=== PATIENT | female | born 1945 | race Caucasian/White ===

== ENCOUNTER → 2018-06-26 14:33 | Outpatient (CLI) | payer OTHER, SELFPAY ==
--- NOTE | 2018-06-26 | DI.RAD.S_ITS ---
PROCEDURE: XR SINUS MIN 3V INDICATIONS: SINUS PAIN TECHNIQUE: 3 views of the sinuses were acquired. COMPARISON: None. FINDINGS: Sinuses: The visualized sinuses demonstrate possible air-fluid levels in the maxillary sinuses bilaterally. The visualized mastoids also appear clear. Bones: No suspicious bony lesions. Nasal septum is midline. IMPRESSION: Suspect acute maxillary sinusitis. Dictated by: Chiara Benson M.D. on 06/26/2018 at 17:22 Approved by: Chiara Benson M.D. on 06/26/2018 at 17:24
== END ==
PROVIDERS: Family Provider Family Medicine; PCP Family Medicine; Visit Provider Family Medicine
DX: J34.89 Other specified disorders of nose and nasal sinuses (principal)
CPT/HCPCS: 70220

== ENCOUNTER → 2021-11-18 09:33 | Outpatient (CLI) | payer OTHER, SELFPAY ==
--- NOTE | 2021-11-18 09:34 | DI.MG.S_ITS ---
BILATERAL DIGITAL SCREENING MAMMOGRAM 3D/2D WITH CAD: 11/18/2021 CLINICAL: Routine screening. Family history of breast cancer. Comparison is made to exams dated: 05/27/2019 mammogram, 12/09/2017 mammogram, and 02/14/2016 mammogram - [facility]. The tissue of both breasts is predominantly fatty. Current study was also evaluated with a Computer Aided Detection (CAD) system. No significant masses, calcifications, or other findings are seen in either breast. There has been no significant interval change. IMPRESSION: NEGATIVE There is no mammographic evidence of malignancy. A 1 year screening mammogram is recommended. This exam was interpreted at Station ID: [id number]. NOTE: For mammograms, a report in lay terms will be sent to the patient. Approximately 15% of breast malignancies will not be visualized mammographically. In the management of a palpable breast mass, a negative mammogram must not discourage biopsy of a clinically suspicious lesion. Electronically Signed By: Chase Garcia M.D., jr/nancy:11/20/2021 08:54:56 letter sent: Normal Exam ACR BI-RADS Category 1: Negative 3341F
== END ==
PROVIDERS: Family Provider Family Medicine; PCP Family Medicine; Referring Provider Family Medicine; Visit Provider Family Medicine
DX: Z12.31 Encounter for screening mammogram for malignant neoplasm of breast (principal); Z80.3 Family history of malignant neoplasm of breast
CPT/HCPCS: 77063; 77067

== ENCOUNTER → 2022-12-05 14:09 | Outpatient (CLI) | payer OTHER, SELFPAY ==
--- NOTE | 2022-12-05 | DI.MG.S_ITS ---
BILATERAL DIGITAL SCREENING MAMMOGRAM 3D/2D WITH CAD: 12/05/2022 CLINICAL: Routine screening. Family history of breast cancer. Comparison is made to exams dated: 11/18/2021 mammogram - [facility], 05/27/2019 mammogram, and 12/09/2017 mammogram - [facility]. Both breasts are almost entirely fatty (category a/<25% glandular tissue). Current study was also evaluated with a Computer Aided Detection (CAD) system. No significant masses, calcifications, or other findings are seen in either breast. There has been no significant interval change. IMPRESSION: NEGATIVE There is no mammographic evidence of malignancy. A 1 year screening mammogram is recommended. Based on the Tyrer Cuzick model (a risk assessment model) the patient's lifetime risk is 6.1% and her 10 year risk is 6.1%. According to the ACR, ACS, and NCCN guidelines, an annual breast MRI exam along with mammogram is recommended if the patient's lifetime risk is 20% or greater. This exam was interpreted at Station ID: [id number]. NOTE: For mammograms, a report in lay terms will be sent to the patient. Approximately 15% of breast malignancies will not be visualized mammographically. In the management of a palpable breast mass, a negative mammogram must not discourage biopsy of a clinically suspicious lesion. Electronically Signed By: Bob munoz/nancy:12/05/2022 16:54:53 letter sent: Normal Exam ACR BI-RADS Category 1: Negative 3341F
== END ==
PROVIDERS: Family Provider Family Medicine; PCP Family Medicine; Referring Provider Family Medicine; Visit Provider Family Medicine
DX: Z12.31 Encounter for screening mammogram for malignant neoplasm of breast (principal); Z80.3 Family history of malignant neoplasm of breast
CPT/HCPCS: 77063; 77067

== ENCOUNTER → 2023-06-20 12:18 | Outpatient (CLI) | payer OTHER, SELFPAY ==
--- NOTE | 2023-06-20 | DI.US.S_ITS ---
PROCEDURE: US PELVIC COMPLETE INDICATIONS: ENDOMETRIAL HYPERPLASIA TECHNIQUE: Real-time scanning was performed of the pelvic organs, with image documentation. Additional endovaginal scanning was necessary due to incomplete visualization of the adnexal and endometrial structures by transabdominal scanning. COMPARISON: None. FINDINGS: Uterus: Uterus is anteverted and normal in size at 5.2 x 2.9 x 3.4 cm. The myometrium is homogeneous. The endometrium measures 5 mm combined thickness. Intrauterine intramural fibroid in the mid uterine segment measuring 1.5 x 1.9 x 1.5 centimeter. Ovaries: Not visualized due to overlying bowel gas. Other: No pathologic free abdominal or pelvic fluid. IMPRESSION: Endometrial stripe measures 5 millimeters. We strive to produce accurate, complete, and clear reports of imaging services. To assist us in improving patient care, this report was composed using standard report templates and voice recognition software. Therefore, it may contain abnormal punctuation, insertions and/or omissions. Occasional wrong-word or sound-alike substitutions may occur. Though we review the report and make efforts to correct it, we do recommend that the report be read carefully in proper context to recognize any text inaccuracies. Dictated by: Conor Liu M.D. on 06/20/2023 at 16:41 Approved by: Conor Liu M.D. on 06/20/2023 at 16:42
== END ==
PROVIDERS: Family Provider Family Medicine; PCP Family Medicine; Referring Provider Family Medicine; Visit Provider Family Medicine
DX: N85.01 Benign endometrial hyperplasia (principal); D25.1 Intramural leiomyoma of uterus
CPT/HCPCS: 76830; 76856; 93975

== ENCOUNTER → 2023-09-25 12:06 | Outpatient (CLI) | payer OTHER, SELFPAY ==
--- NOTE | 2023-09-25 | DI.MRI.S_ITS ---
PROCEDURE: MR CERVICAL SPINE WO CON INDICATIONS: Spinal stenosis, cervical region TECHNIQUE: Noncontrast sagittal T1 spin echo and T2 fast spin echo, sagittal STIR, foraminal oblique sagittal T2 fast spin echo, and axial gradient echo or T2 fast spin echo through the cervical spine. COMPARISON: None. FINDINGS: Image quality: This examination is limited by involuntary motion artifact. Alignment and Curvature: There is minimal retrolisthesis seen at the C3-C4 level. Bone Marrow: Marrow demonstrates normal overall signal. Spinal Cord: Visualized spinal cord has normal size and signal. No cerebellar tonsillar herniation. Paraspinous Soft Tissues: No paravertebral masses. Prevertebral soft tissues are normal in thickness. C2-C3: The disc height is well-preserved. Loss of disc signal is seen at this level. A mild degree of generalized disc osteophyte complex is seen. Mild facet joint hypertrophy is seen. Mild bilateral neural foraminal narrowing is seen. No central canal narrowing is seen. C3-C4: Mild loss of disc height is seen. Loss of disc signal is seen. A mild degree of generalized disc osteophyte complex is seen. Moderate facet joint hypertrophy is seen. Moderate to severe bilateral neural foraminal narrowing can be seen. Mild to moderate central canal narrowing is seen. C4-C5: Moderate loss of disc height is seen. Loss of disc signal is seen. A mild degree of generalized disc osteophyte complex is seen. At least moderate facet hypertrophy is seen. There is moderate to severe left-sided and at least moderate right-sided neural foraminal narrowing. Mild central canal narrowing is seen. C5-C6: Moderate loss of disc height is seen. Loss of disc signal is seen. Moderate generalized disc osteophyte complex is seen. Moderate facet joint hypertrophy is seen. There is moderate to severe bilateral neural foraminal narrowing seen, with an associated a degree of compression seen upon the exiting nerve roots. Mild to moderate central canal narrowing is seen, with a mild degree of mass effect upon the ventral spinal cord. C6-C7: Moderate loss of disc height is seen. Loss of disc signal is seen. Moderate disc osteophyte complex is seen, which is eccentric to the left, with a central/left disc osteophyte protrusion. Mild to moderate facet hypertrophy can be seen. There is moderate right-sided and at least moderate left-sided neural foraminal narrowing. Moderate central canal narrowing is seen. There is associated mass effect upon the ventral spinal cord. C7-T1: Moderate loss of disc height is seen. Loss of disc signal is seen. A mild degree of generalized disc osteophyte complex is seen. Moderate facet joint hypertrophy is seen. There is mild right-sided and no left-sided neural foraminal narrowing. Minimal central canal narrowing is seen. IMPRESSION: Multiple levels of cervical spine degenerative change can be seen, which are overall worst inferiorly. Dictated by: Richie Artis M.D. on 09/25/2023 at 13:02 Approved by: Richie Artis M.D. on 09/25/2023 at 13:06
== END ==
PROVIDERS: Family Provider Family Medicine; PCP Family Medicine; Referring Provider Physical Medicine & Rehabilitation Pain Medicine; Visit Provider Physical Medicine & Rehabilitation Pain Medicine
DX: M48.02 Spinal stenosis, cervical region (principal); M47.812 Spondylosis without myelopathy or radiculopathy, cervical region
CPT/HCPCS: 72141

== ENCOUNTER 2023-12-07 00:02 | Emergency (ER) | payer OTHER, SELFPAY ==
[2023-12-07] VITALS (7 sets, daily range): BP systolic 134–185; BP diastolic 61–81; PULSE 68–78; RESP 16–33; TEMP 36.6–36.7; O2SAT 97–99; BMI 79.4
--- NOTE | 2023-12-07 00:06 | ED.ARRPALP ---
HPI - Arrhythmia/Palpitations General Chief Complaint: Arrhythmia/Palpitations Stated Complaint: irregular heart beat Time Seen by Provider: 12/07/23 00:03 Source: patient, RN notes reviewed and old records reviewed Mode of arrival: Ambulatory Limitations: no limitations History of Present Illness HPI narrative: 77-year-old female with history of irregular heartbeat 15-20 years ago metoprolol daily, hypertension, hypothyroidism and insomnia with prior lap band remotely. Patient states she felt like her heart rate was irregular today sort of a flutter in her chest that felt weird. Denies any chest pain or pressure, no shortness of breath. [place] like sometimes she had some trigeminy. She states heart rates usually in the 60s and has a little bit higher today. She denies any syncope, no lightheadedness. No fevers cough cold or congestion. No nausea or vomiting. No diarrhea constipation, no urinary symptoms no swelling of extremities. Patient states she saw Dr. Murphy for Cardiology 15 or 20 years ago for an irregular heartbeat was started on metoprolol at that time and has not had any issues since. States home medications include Ambien in the evenings, metoprolol 25 mg once daily, amlodipine 5 mg as well as Synthroid 100 mcg. Patient's prior surgeries has had cholecystectomy, lap band approximately 20 years ago and tonsil and adenoids. No reported drug allergies. No tobacco, alcohol or recreational drugs, no regular caffeine. Patient's primary care is Dr. Aponte. Patient did see Dr. Sanders (last visit was 15-20 years ago). Related Data Home Medications Medication Instructions Recorded Confirmed [LOTREL] 520 mg PO Q DAY ##0 12/17/10 [TRILIPICS] 135 mg PO Q DAY ##0 12/17/10 [ZERTEC] 10 mg PO BID ##0 12/17/10 Previous Rx's Medication Instructions Recorded azithromycin 250 mg tablet 250 mg PO Q DAY #6 tabs 11/10/17 (Zithromax) benzonatate 100 mg capsule 100 mg PO TID #30 caps 11/10/17 (Tessalon Perles) ipratropium 20 mcg-albuterol 100 1 puff INH QID #1 inh 11/10/17 mcg/actuation mist for inhalation (Combivent Respimat) Allergies Allergy/AdvReac Type Severity Reaction Status Date / Time gentamicin [GENTAMICIN] Allergy Unknown Unverified 01/22/18 11:58 Review of Systems Review of Systems ROS Unobtainable: All systems reviewed & are unremarkable except as noted in HPI and below Patient History Social History Smoking Status: Former smoker Exam Narrative Exam Narrative: GENERAL: Alert and oriented x three, mild distress HEENT: Head normocephalic, atraumatic, EOMI, pupils reactive, face symmetric, moist mucous membranes NECK: Supple, full range of motion CARDIOVASCULAR: Regular rate and rhythm without murmurs, rubs or gallops. No JVD. No edema bilateral lower extremities. RESPIRATORY: Breath sounds equal bilaterally, no wheezes rales or rhonchi. No tachypnea or accessory muscle use. ABDOMEN: Soft, nontender. Normoactive bowel sounds all 4 quadrants. No guarding or rebound, rigidity, no mass : No CVA tenderness EXTREMITIES: Normal range of motion, no clubbing or edema. Neurovascularly intact NEUROLOGICAL: Cranial nerves II through XII grossly intact. Moving all extremities SKIN: Warm, dry, no petechiae, no rashes or lesions. Initial Vital Signs Initial Vital Signs: Vital Signs Temperature 98.1 F 12/07/23 00:11 Pulse Rate 77 12/07/23 00:11 Respiratory Rate 18 12/07/23 00:11 Blood Pressure 185/81 H 12/07/23 00:11 Pulse Oximetry 97 12/07/23 00:11 Oxygen Delivery Method Room Air 12/07/23 00:11 Course Orders Ordered: ED Orders 12/07/23 00:18 EKG-12 Lead Stat 12/07/23 00:24 XR chest 1V Stat 12/07/23 00:30 Complete Blood Count AUTO DIFF Stat Comprehensive Metabolic Panel Stat Lipase Stat NT-proBNP (BNP-Adult 18+) Stat Troponin & CK Cardiac Panel Stat 12/07/23 01:14 MAG [Magnesium] Stat Discontinued Medications Sodium Chloride (Normal Saline 0.9%) 1,000 mls @ 1,000 mls/hr IV BOLUS ONE Stop: 12/07/23 01:23 Last Admin: 12/07/23 00:33 Dose: 1,000 mls/hr Documented By: LISA Vital Signs Vital signs: Vital Signs - 8 hr 12/07/23 00:11 12/07/23 00:35 12/07/23 00:37 Temperature 98.1 F Pulse Rate 77 77 78 Respiratory Rate 18 33 H 16 Blood Pressure 185/81 H Pulse Oximetry 97 99 98 Oxygen Delivery Method Room Air Room Air Room Air 12/07/23 00:37 12/07/23 01:00 12/07/23 01:00 Temperature Pulse Rate 71 Respiratory Rate 17 Blood Pressure 174/81 H 156/70 H Pulse Oximetry 98 Oxygen Delivery Method 12/07/23 01:30 12/07/23 01:30 12/07/23 02:00 Temperature Pulse Rate 71 68 Respiratory Rate 18 18 Blood Pressure 144/66 H Pulse Oximetry 98 98 Oxygen Delivery Method 12/07/23 02:00 12/07/23 02:11 Temperature 97.9 F Pulse Rate 72 Respiratory Rate 16 Blood Pressure 134/61 136/74 Pulse Oximetry 98 Oxygen Delivery Method Room Air MDM - Arrhythmia/Palpitations Lab Data 12/07/23 00:30 12/07/23 00:30 Labs: Lab Results 12/07/23 12/07/23 Range/Units 00:30 01:14 WBC 8.5 (4.5-11.0) X10^3/uL RBC 5.17 (4.0-5.2) X10^6/uL Hgb 15.4 (12.0-16.0) g/dL Hct 45.1 (36-46) % MCV 87.3 (80-100) fL MCH 29.8 (26-34) PG MCHC 34.1 (30-36) % RDW 14.1 (11.6-14.8) % Plt Count 211 (150-400) X10^3/uL Neut % (Auto) 60.2 (50-75) % Lymph % (Auto) 27.2 (25-40) % [place] % (Auto) 8.9 (3-14) % Eos % (Auto) 2.8 (2-4) % Baso % (Auto) 0.9 (0-2) % Neut # (Auto) 5100 (6350-0365) /uL Lymph # (Auto) 2300 (7807-4822) /uL [place] # (Auto) 800 (0-900) /uL Eos # (Auto) 200 (0-450) /uL Baso # (Auto) 100 (0-100) /uL Sodium 141 (137-145) mmol/L Potassium 3.9 (3.4-5.1) mmol/L Chloride 108 H (98-107) mmol/L Carbon Dioxide 22 (22-32) mmol/L BUN 17 (7-17) mg/dL Creatinine 0.66 (0.52-1.04) mg/dL Estimated GFR > 60 (>60) mL/min BUN/Creatinine Ratio 25.8 H (6-22) Glucose 107 (80-110) mg/dL Calcium 9.9 (8.4-10.2) mg/dL Magnesium 1.8 (1.6-2.3) mg/dL Total Bilirubin 0.7 (0.2-1.3) mg/dL AST 29 (14-36) IU/L ALT 22 (<35) IU/L Alkaline Phosphatase 110 (38-126) U/L Total Creatine Kinase 39 (30-135) U/L Troponin I < 0.012 (0.01-0.034) ng/mL NT-Pro-B Natriuret Pep 289 (<450) pg/mL Total Protein 7.6 (6.3-8.2) g/dL Albumin 4.5 (3.5-5.0) g/dL Globulin 3.1 (1.7-4.1) g/dL Albumin/Globulin Ratio 1.5 (1.0-2.8) Lipase 239 (23-300) U/L Urine Dip Bedside Urine Glucose Negative Bedside Urine Bilirubin - Negative Bedside Urine Ketone - Negative Urine Specific [place] 1.005 Bedside Urine Occult Blood + Bedside Urine pH 6.0 Bedside Urine Protein - Negative Bedside Urine Urobilinogen - Negative Bedside Urine Nitrite - Negative Bedside Urine Leukocytes - Negative Esterase Imaging Data Chest x-ray: Radiologist's Impresson: [address] [id number] XRay Report Signed Patient: Alondra Kim MR#: [id number] : 1945 Acct:[id number] Age/Sex: 77 / F Date of Service: 12/07/23 Loc: ED Accession Number: [id number] Procedure: XR chest 1V Ordering Provider: Hailey Knowles D.O. PROCEDURE: XR CHEST 1V INDICATIONS: flutter in chest TECHNIQUE: One view of the chest was acquired. COMPARISON: [facility], , CHEST 2 VIEW, 11/21/2017, 13:34. FINDINGS: Surgical changes and devices: None. Lungs and pleura: Lungs are clear. No pleural effusions or pneumothorax. Mediastinum: Mediastinal contours appear normal. Heart size is normal. Bones and chest wall: No suspicious bony lesions. Overlying soft tissues appear unremarkable. IMPRESSION: Stable radiographic evaluation of the chest without acute cardiopulmonary abnormalities or focal airspace disease. Dictated by: Bob Floyd M.D. on 12/07/2023 at 1:00 Approved by: Bob Floyd M.D. on 12/07/2023 at 1:00 ECG Data Attestation: I personally reviewed and interpreted this ECG as follows: Prior ECG tracings: not available for review Interpretation: Sinus rhythm rate 83 TN 152 QRS of 98 QTC of 477. Nonspecific ST change. Depression in lateral leads V4 5 and 6. No elevation appreciated. No priors available for comparison. MDM Narrative Medical decision making narrative: 77-year-old female comes in with complaint of flutter sensation in her chest/irregular heart rate since she woke up yesterday morning. Patient does have occasional PVCs on monitor but infrequently. Patient notes she would irregular heartbeat 15-20 years ago was placed on metoprolol at that time and has not required any other interventions. EKG shows some ST depression in lateral leads but patient does not have any complaints of chest pain or pressure shortness of breath. No elevations noted. Chest x-ray shows no acute change Labs negative CBC, CMP shows a chloride of 108, otherwise normal electrolytes, renal function, troponin is negative BNP is 289. LFTs are negative. Magnesium is 1.8 Patient was given 1 L of fluids. She feels improved and doesn't appreciate the flutter feeling in her chest at this time. Discussed with patient she would falls comfortable to return home. Discussed can follow up with primary care for Holter/ZIO patch if symptoms are minimal if worsening or feels concern can return for re-evaluation. Patient has ambulated to the bathroom and back without issue. Discharge Plan Departure Patient Disposition: Home Clinical Impression: Palpitations Instructions: DI for Palpitations Activity Restrictions/Additional Instructions: Your telemetry does show occasional extra beats but no arrhythmias today. Please follow-up with your physician for recheck if your symptoms are persisting. Please continue your home medications as prescribed. Please return if you have fevers, new chest pain or shortness of breath, persistently irregular or elevated heart rates, lightheadedness or passing out, persistent vomiting, new swelling in your extremities or other new or concerning changes. Prescriptions: No Action [LOTREL] 520 mg PO Q DAY Qty: 0 [TRILIPICS] 135 mg PO Q DAY Qty: 0 [ZERTEC] 10 mg PO BID Qty: 0 azithromycin [Zithromax] 250 MG tablet 250 mg PO Q DAY Qty: 6 0RF benzonatate [Tessalon Perles] 100 MG capsule 100 mg PO TID Qty: 30 0RF ipratropium-albuterol [Combivent Respimat] 4 GM mist 1 puff INH QID Qty: 1 0RF Referrals: Josue Aponte MD [Primary Care Provider] - Stand Alone Forms: Patient Portal/API
--- NOTE | 2023-12-07 00:24 | DI.RAD.S_ITS ---
PROCEDURE: XR CHEST 1V INDICATIONS: flutter in chest TECHNIQUE: One view of the chest was acquired. COMPARISON: [facility], , CHEST 2 VIEW, 11/21/2017, 13:34. FINDINGS: Surgical changes and devices: None. Lungs and pleura: Lungs are clear. No pleural effusions or pneumothorax. Mediastinum: Mediastinal contours appear normal. Heart size is normal. Bones and chest wall: No suspicious bony lesions. Overlying soft tissues appear unremarkable. IMPRESSION: Stable radiographic evaluation of the chest without acute cardiopulmonary abnormalities or focal airspace disease. Dictated by: Bob Floyd M.D. on 12/07/2023 at 1:00 Approved by: Bob Floyd M.D. on 12/07/2023 at 1:00
[2023-12-07] MEDS: SODIUM CHLORIDE 0.9% 1,000 ML 1000 ML IV (00:33)
[2023-12-07 00:52] LABS: Add Manual Diff / Slide Review NO; Basophils Absolute Auto 100 /uL (0-100); Basophils Percent Auto 0.9 % (0-2); Eosinophils Absolute Auto 200 /uL (0-450); Eosinophils Percent Auto 2.8 % (2-4); Hematocrit 45.1 % (36-46); Hemoglobin 15.4 g/dL (12.0-16.0); Lymphocytes Absolute Auto 2300 /uL (1100-4500); Lymphocytes Percent Auto 27.2 % (25-40); Mean Corpuscular HGB Conc 34.1 % (30-36); Mean Corpuscular Hemoglobin 29.8 PG (26-34); Mean Corpuscular Volume 87.3 fL (80-100); Monocytes Absolute Auto 800 /uL (0-900); Monocytes Percent Auto 8.9 % (3-14); Neutrophils Absolute Auto 5100 /uL (1500-7000); Neutrophils Percent Auto 60.2 % (50-75); Platelet Count 211 X10^3/uL (150-400); Red Blood Cell Count 5.17 X10^6/uL (4.0-5.2); Red Cell Distribution Width 14.1 % (11.6-14.8); White Blood Cell Count 8.5 X10^3/uL (4.5-11.0)
[2023-12-07 01:01] LABS: Alanine Aminotransferase 22 IU/L (<35); Albumin 4.5 g/dL (3.5-5.0); Albumin Globulin Ratio 1.5 (1.0-2.8); Alkaline Phosphatase 110 U/L (38-126); Aspartate Aminotransferase 29 IU/L (14-36); BUN Creatinine Ratio 25.8 (6-22); Bilirubin Total 0.7 mg/dL (0.2-1.3); Blood Urea Nitrogen 17 mg/dL (7-17); Calcium 9.9 mg/dL (8.4-10.2); Carbon Dioxide 22 mmol/L (22-32); Chloride 108 mmol/L (98-107); Creatine Kinase 39 U/L (30-135); Estimated Glomerular Filt Rate > 60 mL/min (>60); Globulin 3.1 g/dL (1.7-4.1); Glucose 107 mg/dL (80-110); HEMOLYSIS 24 (0-50); Lipase 239 U/L (23-300); Potassium 3.9 mmol/L (3.4-5.1); Sodium 141 mmol/L (137-145); Total Protein 7.6 g/dL (6.3-8.2)
[2023-12-07 01:12] LABS: NT-proBNP (BNP-Adult 18+) 289 pg/mL (<450); Troponin I < 0.012 ng/mL (0.01-0.034)
[2023-12-07 01:34] LABS: Magnesium 1.8 mg/dL (1.6-2.3)
== END 2023-12-07 02:13 | disposition home or self-care (01) ==
PROVIDERS: Emergency Provider Emergency Medicine; Family Provider Family Medicine; PCP Family Medicine
DX: R00.2 Palpitations (principal)
CPT/HCPCS: 36415; 71045; 80053; 81003; 82550; 83690; 83735; 83880; 84484; 85025; 93005; 96360; 99284

== ENCOUNTER → 2023-12-12 12:38 | Outpatient (CLI) | payer OTHER, SELFPAY ==
--- NOTE | 2023-12-12 12:39 | DI.MG.S_ITS ---
BILATERAL DIGITAL SCREENING MAMMOGRAM 3D/2D WITH CAD: 12/12/2023 CLINICAL: Routine screening. Family history of breast cancer. Comparison is made to exams dated: 12/05/2022 mammogram, 11/18/2021 mammogram - [facility], 05/27/2019 mammogram, and 12/09/2017 mammogram - [facility]. Both breasts are almost entirely fatty (category a/<25% glandular tissue). Current study was also evaluated with a Computer Aided Detection (CAD) system. No significant masses, calcifications, or other findings are seen in either breast. There has been no significant interval change. IMPRESSION: NEGATIVE There is no mammographic evidence of malignancy. A 1 year screening mammogram is recommended. Based on the Tyrer Cuzick model (a risk assessment model) the patient's lifetime risk is 5.6% and her 10 year risk is 0.0%. According to the ACR, ACS, and NCCN guidelines, an annual breast MRI exam along with mammogram is recommended if the patient's lifetime risk is 20% or greater. This exam was interpreted at Station ID: [id number]. NOTE: For mammograms, a report in lay terms will be sent to the patient. Approximately 15% of breast malignancies will not be visualized mammographically. In the management of a palpable breast mass, a negative mammogram must not discourage biopsy of a clinically suspicious lesion. Electronically Signed By: Adonis alexander/nancy:12/12/2023 12:59:44 letter sent: Normal Exam ACR BI-RADS Category 1: Negative 3341F
== END ==
LOC: MAMMO 12:38
PROVIDERS: Family Provider Family Medicine; PCP Family Medicine; Referring Provider Family Medicine; Visit Provider Family Medicine
DX: Z12.31 Encounter for screening mammogram for malignant neoplasm of breast (principal); Z80.3 Family history of malignant neoplasm of breast
CPT/HCPCS: 77063; 77067

== ENCOUNTER → 2024-01-16 13:33 | Outpatient (CLI) | payer OTHER, SELFPAY ==
--- NOTE | 2024-01-16 13:34 | DI.CT.S_ITS ---
PROCEDURE: CT HEAD/BRAIN WO CON INDICATIONS: Dizziness and giddiness TECHNIQUE: Noncontrast 4.5 mm thick angled axial sections acquired from the foramen magnum to the vertex, with coronal and sagittal reformats. For radiation dose reduction, the following was used: automated exposure control, adjustment of mA and/or kV according to patient size. COMPARISON: None. FINDINGS: Image quality: Diagnostic. CSF spaces: Basal cisterns are patent. No extra-axial fluid collections. The ventricles are symmetric in size and shape. Brain: No intracranial bleeds or masses. There is cerebral volume loss for age, with resultant ventricular and sulcal prominence. There are periventricular and deep white matter chronic small vessel ischemic changes. There is intracranial internal carotid artery atherosclerosis. Skull and face: Calvarium and visualized facial bones appear intact, without suspicious lesions. Incidental note is made of hyperostosis frontalis. This is not considered to be pathologic in a woman of this age. Sinuses: Visualized sinuses and mastoids are clear. IMPRESSION: No imaging explanation is found for this patient's presenting symptoms. Noncontrast head CT study within normal limits for age. Dictated by: Richie Artis M.D. on 01/16/2024 at 13:46 Approved by: Richie Artis M.D. on 01/16/2024 at 13:46
--- NOTE | 2024-01-16 13:35 | DI.CT.S_ITS ---
PROCEDURE: CT SINUS SCREEN WO CON INDICATIONS: Dizziness and giddiness TECHNIQUE: Noncontrast 3.0 mm axial images acquired from the frontal sinuses to the mid-sella, with coronal and sagittal reformats. For radiation dose reduction, the following was used: automated exposure control, adjustment of mA and/or kV according to patient size. COMPARISON: [facility], CT, CT HEAD/BRAIN WO CON, 01/16/2024, 13:47. FINDINGS: Image quality: There is artifact associated with the metallic hardware. Artifact from the metallic hardware is reduced by metal reconstruction algorithm. Maxillary Sinuses: No bony remodeling or destruction. Sinuses are clear. Ethmoid Air Cells: No bony remodeling or destruction. Sinuses are clear. Sphenoid Sinuses: No bony remodeling or destruction. Sinuses are clear. Frontal Sinuses: No bony remodeling or destruction. Sinuses are clear. Ostiomeatal Complexes: Ostiomeatal complexes are patent. No Radha cells. Miscellaneous: Visualized intra-orbital contents are normal. No [place] or paradoxical turbinate curvature. There is minimal rightward nasal septal deviation. Incidental note is made of hyperostosis frontalis. This is not considered to be pathologic in a woman of this age. IMPRESSION: No significant active paranasal sinus disease is seen. Dictated by: Richie Artis M.D. on 01/16/2024 at 13:47 Approved by: Richie Artis M.D. on 01/16/2024 at 13:47
== END ==
LOC: CT 13:34
PROVIDERS: Family Provider Family Medicine; PCP Family Medicine; Referring Provider Family Medicine; Visit Provider Family Medicine
DX: I65.29 Occlusion and stenosis of unspecified carotid artery (principal); R42 Dizziness and giddiness
CPT/HCPCS: 70450; 70486

== ENCOUNTER → 2024-10-13 14:50 | Outpatient (CLI) | payer OTHER, SELFPAY ==
--- NOTE | 2024-10-13 14:52 | DI.ECHO.S_ITS ---
[facility] : : [id number] : : [place] : : [id number] : : Phone: [phone] Echocardiogram Report + + :Name: EMMANUEL CRISTINA Study Date: 10/13/2024 Height: 64 in : :[facility] ReadingLocation: Weight: 220 lb : : Gender: Female BSA: 2.0 m2 : :: 1945 Age: 78 yrs BP: 166/70 mmHg: :Reason For Study: NONRHEUMATIC TRICUSPID VALVE INSUFFICIENCY : :Ordering Physician: SIMÓN, : :MELONIE Hawkins Performed By: Chase Garcia : :Referring: MELONIE GR : + + Interpretation Summary 1) Normal left ventricular size, wall motion, and systolic function (EF 60- 65%). 2) Normal right ventricular size and function. 3) There is mild aortic stenosis (valve area 1.7cm2, mean gradient 9mmHg, severity ratio 0.48). 4) No prior Echo available for comparison. Procedure: A two-dimensional transthoracic echocardiogram with color flow and Doppler was performed. The study quality was technically good. There is no prior echocardiogram noted for this patient. The patient was in normal sinus rhythm during the exam. Left Ventricle: The left ventricle is normal in size. Left ventricular wall thickness is mildly increased. There is no ventricular septal defect visualized. The ejection fraction is estimated to be 60-65%. There are no focal wall motion abnormalities. Diastolic parameters suggest a pseudonormalization pattern, consistent with probable elevated filling pressures. Right Ventricle: The right ventricle is normal in size and function. Atria: The left atrium is moderately dilated. Right atrial size is normal. There is no Doppler evidence for an interatrial shunt. Mitral Valve: There is moderate mitral annular calcification. There is no mitral regurgitation noted. Aortic Valve: The aortic valve is trileaflet. The aortic valve is mildly calcified. There is mild aortic stenosis. The peak aortic velocity is 2.00 m/sec. The aortic valve mean gradient is 8.7 mmHg. No aortic regurgitation is present. Tricuspid Valve: The tricuspid valve leaflets are thin and pliable. No tricuspid regurgitation. Pulmonary artery pressures cannot be estimated because of the lack of a measurable TR jet velocity. Pulmonic Valve: The pulmonic valve leaflets are thin and pliable; valve motion is normal. There is no pulmonic valvular regurgitation. Great Vessels: The aortic root is normal size. The dimensions of the ascending aorta are normal. The pulmonary artery is normal size. The IVC is of normal diameter and collapses greater than 50% with a sniff. This suggests a low right atrial pressure of 3 mm Hg. Pericardium/ Pleura There is no pericardial effusion. MMode/2D Measurements & Calculations LVIDd: 4.4 cm LVOT diam: 2.1 cm LVIDs: 2.6 cm Ao root diam: 3.2 cm FS: 40.4 % asc Aorta Diam: 3.5 cm EPSS: 0.75 cm IVSd: 1.1 cm LVPWd: 1.1 cm LV mascorro. diameter/BSA (cm/m^2): 2.2 LV sys. diameter/BSA (cm/m^2): 1.3 LA A2 area: 20.8 cm2 RA long axis: 4.6 cm LA A4 area: 24.4 cm2 RA area: 12.7 cm2 LA length (vol): 6.1 cm RA vol: 29.4 ml LA vol: 70.1 ml RA : 14.4 ml/m2 LA vol index: 34.4 ml/m2 IVC diam: 1.7 cm RVD1 (basal): 3.8 cm RVD2 (mid): 3.5 cm TAPSE: 2.8 cm Doppler Measurements & Calculations Ao V2 max: 200.0 cm/sec LVOT Max Oli: 98.2 cm/sec Ao V2 mean: 138.7 cm/sec LV V1 max P.9 mmHg Ao max P.0 mmHg LV V1 VTI: 21.9 cm Ao mean P.7 mmHg SHAILA(I,D): 1.7 cm2 Ao V2 VTI: 45.4 cm SHAILA(V,D): 1.7 cm2 sev ratio: 0.48 SHAILA indexed to BSA (cm^2/m^2): 0.83 MV E max oli: 94.0 cm/sec TR max oli: 221.2 cm/sec MV A max oli: 130.5 cm/sec TR max P.6 mmHg MV E/A: 0.72 PA V2 max: 99.2 cm/sec Med Peak E' Oli: 5.4 cm/sec PA V2 mean: 55.3 cm/sec E/E' med: 17.5 PA mean P.5 mmHg Lat Peak E' Oli: 6.1 cm/sec PA pr(Accel): 43.0 mmHg E/E' lat: 15.3 E/e' average: 16.4 MV dec time: 0.24 sec SV(LVOT): 77.1 ml Reading Physician:05:07 PM
== END ==
PROVIDERS: Family Provider Family Medicine; PCP Family Medicine; Referring Provider Family Medicine; Visit Provider Family Medicine
DX: I34.81 Nonrheumatic mitral (valve) annulus calcification (principal); I35.0 Nonrheumatic aortic (valve) stenosis
CPT/HCPCS: 93306

== ENCOUNTER → 2024-12-30 12:59 | Outpatient (CLI) | payer OTHER, SELFPAY ==
--- NOTE | 2024-12-30 13:00 | DI.MG.S_ITS ---
MM screening mammo BI: 12/30/2024. BI-RADS: 1 CLINICAL: 79-year old female for bilateral screening mammogram. Tyrer-Cuzick lifetime risk of 3.9%. Current reported family history of breast cancer: mother. PRIOR EXAMS 12/12/2023, 12/05/2022, 11/18/2021. MAMMOGRAPHY TECHNIQUE: 2D and 3D (tomosynthesis) digital mammographic views obtained, with additional images as needed for full coverage. Current study was also evaluated with a Computer Aided Detection (CAD) system. DENSITY A. The breasts are almost entirely fatty. MAMMOGRAPHY FINDINGS Bilateral: No suspicious mass, asymmetry, microcalcification, or other abnormality seen. IMPRESSION: * No evidence of malignancy. RECOMMENDATIONS Bilateral * Annual screening mammography. OVERALL ASSESSMENT CATEGORY BI-RADS-1: Negative. [employer] recommends annual screening mammography beginning at age 40 for women with average risk of breast cancer. ELECTRONICALLY SIGNED: Tori Carrasquillo M.D. on 12/30/2024 at 05:11:49 PM PT Interpreting Station ID: [id number]
== END ==
PROVIDERS: Family Provider Family Medicine; PCP Family Medicine; Referring Provider Family Medicine; Visit Provider Family Medicine
DX: Z12.31 Encounter for screening mammogram for malignant neoplasm of breast (principal); Z80.3 Family history of malignant neoplasm of breast
CPT/HCPCS: 77063; 77067